=== PATIENT | male | born 1980 | race Caucasian/White ===

== ENCOUNTER 2018-02-15 00:09 | Emergency (ER) | payer MEDICAID ==
[2018-02-15 00:22] VITALS: BP 114/71; PULSE 82; TEMP 97.8; O2SAT 99
[2018-02-15 00:47] VITALS: RESP 20
--- NOTE | 2018-02-15 00:47 | C.PDOC ---
History Of Present Illness 37 year old male presents to the ED c/o painful pimple on the left side of his forehead. Patient denies fever, chills, nausea, vomit, headache, rash, injury, fall, trauma. Time Seen by Provider: 02/15/18 00:28 Chief Complaint (Nursing): Abnormal Skin Integrity History Per: Patient History/Exam Limitations: no limitations Onset/Duration Of Symptoms: Days Location Of Injury: Left: Head Quality Of Symptoms: Painful, Swollen Recent travel outside of the [place]: No Additional History Per: Patient Past Medical History Reviewed: Historical Data, Nursing Documentation, Vital Signs Vital Signs: Last Vital Signs Temp 97.8 F 02/15/18 00:18 Pulse 82 02/15/18 00:18 Resp 18 02/15/18 00:18 BP 114/71 02/15/18 00:18 Pulse Ox 99 02/15/18 00:18 - Medical History PMH: No Chronic Diseases Surgical History: No Surg Hx Family History: States: Unknown Family Hx - Social History Hx Alcohol Use: No Hx Substance Use: No - Immunization History Hx Tetanus Toxoid Vaccination: Yes (2016) Hx Influenza Vaccination: No Hx Pneumococcal Vaccination: No Review Of Systems Constitutional: Negative for: Fever, Chills Eyes: Negative for: Vision Change Skin: Positive for: Other Neurological: Negative for: Weakness, Numbness, Headache Physical Exam - Physical Exam Appears: Non-toxic, No Acute Distress Skin: Normal Color, Warm, Dry Head: Atraumatic, Normacephalic, Tenderness (small erythematous boil left forehead , non fluctuant mass, non draining) Eye(s): bilateral: Normal Inspection, PERRL, EOMI Extremity: Normal ROM, No Tenderness, No Swelling Neurological/Psych: Oriented x3, Normal Speech, Normal Cognition Gait: Steady ED Course And Treatment O2 Sat by Pulse Oximetry: 99 (ON RA) Pulse Ox Interpretation: Normal Progress Note: On reassessment, patient is resting comfortably, and is in no acute distress. Patient was instructed to follow up with physician/clinic in 1-2 days for further evaluation. Disposition - Disposition Referrals: Non [facility] Provider, [Primary Care Provider] - Disposition: HOME/ ROUTINE Disposition Time: 00:38 Condition: STABLE Additional Instructions: TAKE MEDICATION DIRECTED TYLENOL AND MOTRIN FOR PAIN NEEDED APPLY WARM COMPRESS TO AREA PLEASE FOLLOW UP WITH PMD IN 2 DAYS RETURN TO ER IF WORSE Prescriptions: Cephalexin [cephalexin] 500 mg PO QID #20 cap Instructions: Boil (DC) Forms: [employer] ([place]) - Clinical Impression Clinical Impression: Boil - PA / BOX STAMPER / Resident Statement MD/DO has reviewed & agrees with the documentation as recorded. - Scribe Statement The provider has reviewed the documentation as recorded by the Scribe Andres Campo All medical record entries made by the Scribe were at my direction and personally dictated by me. I have reviewed the chart and agree that the record accurately reflects my personal performance of the history, physical exam, medical decision making, and the department course for this patient. I have also personally directed, reviewed, and agree with the discharge instructions and disposition.
== END 2018-02-15 00:46 | disposition home or self-care (01) ==
LOC: SUPCPDRO 00:09 → C.ER 00:09
DX: L02.02 Furuncle of face (principal)